=== PATIENT | female | born 1955 | race Hispanic/Latino ===

== ENCOUNTER 2023-09-25 18:11 | Emergency (ER) | payer OTHER ==
[~2023-09-25] VITALS: Ht 149.9 cm; Wt 81.6 kg
[2023-09-25 19:13] LABS: APPEARANCE,URINE CLEAR (CLEAR); BILIRUBIN,URINE NEGATIVE (NEGATIVE); COLOR,URINE COLORLESS (YELLOW); GLUCOSE, URINE (UA) NEGATIVE (NEGATIVE); KETONES,URINE NEGATIVE (NEGATIVE); LEUKOCYTE ESTERASE ,URINE NEGATIVE Leu/uL (NEGATIVE); NITRATE,URINE NEGATIVE (NEGATIVE); OCCULT BLOOD,URINE NEGATIVE (NEGATIVE); PH,URINE 6.5 (5.0-8.0); PROTEIN,URINE NEGATIVE (NEGATIVE); UROBILINOGEN,URINE 0.2 mg/dL (0.2-1.0)
[2023-09-25 19:18] LABS: ADD UA MICROSCOPIC YES
[2023-09-25 19:20] LABS: BACTERIA,URINE RARE /HPF (None Seen); RBC,URINE 0-1 /HPF (0-1); SQUAMOUS EPITHELIAL CELL,UR RARE /HPF (0-2)
[2023-09-25 19:24] LABS: BASOPHILS # (AUTO) 0.03 K/uL (0.00-0.20); BASOPHILS % (AUTO) 0.4 % (0.0-5.0); EOSINOPHILS % (AUTO) 1.5 % (0.0-8.0); IMMATURE GRANULOCYTE ABSOLUTE 0.02 K/uL (0-1); LYMPHOCYTES # (AUTO) 2.4 K/uL (1.0-4.8); LYMPHOCYTES % (AUTO) 36.2 % (21.0-51.0); MEAN CORPUSCULAR HEMOGLOBIN 30.7 pg (27.0-33.0); MEAN CORPUSCULAR HGB CONC 32.8 g/dL (32.0-36.0); MEAN CORPUSCULAR VOLUME 93.5 fL (79-99); MONOCYTES # (AUTO) 0.4 K/uL (0.1-1.0); MONOCYTES % (AUTO) 5.8 % (3.0-13.0); NEUTROPHILS # (AUTO) 3.8 K/uL (1.8-7.7); NEUTROPHILS % (AUTO) 55.8 % (40.0-77.0); PLATELET COUNT (AUTO) 154 K/uL (130-400); RED BLOOD CELL COUNT(AUTO) 4.17 MIL/uL (4.00-5.50); RED CELL DISTRIBUTION WIDTH 13.3 % (11.0-15.5); WHITE BLOOD COUNT (AUTO) 6.7 K/uL (4.8-10.8)
[2023-09-25 19:39] LABS: CREATININE 0.8 mg/dL (0.5-1.0); POTASSIUM 3.7 mmol/L (3.5-5.1)
[2023-09-25 19:49] LABS: ALBUMIN 3.6 g/dL (3.5-5.0); BILIRUBIN,TOTAL 0.5 mg/dL (0.2-1.0); TOTAL PROTEIN, SERUM 7.6 g/dL (6.0-8.3)
[2023-09-25] MEDS: TAMSULOSIN HCL 0.4 MG CAP.ER.24H PO ONE (21:39)
[2023-09-25] MEDS: CEFTRIAXONE 2GM VIAL IVPB ONE (21:40)
[2023-09-25] MEDS: FAMOTIDINE 20MG VIAL IV ONE (21:40)
[2023-09-25] MEDS: KETOROLAC 30MG VIAL (30MG/ML) IVP ONE (21:40)
[2023-09-25] MEDS: 0.9%NACL 1000ML 1,632 ML IV ONE (21:40)
[2023-09-25] MEDS: METOCLOPRAMIDE 10 MG/2 ML VIAL IVP ONE (21:40)
[2023-09-25] MEDS ORDERED: POLY17PO4 PO (22:17)
[2023-09-25] MEDS: LACTULOSE 20 GM/30 ML UDCUP PO ONE (22:37)
[2023-09-25 22:39] VITALS: BP 143/67; PULSE 61; RESP 17; O2SAT 98
== END 2023-09-25 23:05 | disposition home or self-care (01) ==
LOC: EDH 18:11
DX: K59.00 Constipation, unspecified (principal); E11.9 Type 2 diabetes mellitus without complications; Z98.890 Other specified postprocedural states
CPT/HCPCS: 99285; 74176; 96365; 96375; 84484; 80053; 83690; 85025; 81001; 36415; 93005; J3490; J7030; J0696; J1885; J2765

== ENCOUNTER → 2025-04-04 | Outpatient (CLI) | payer OTHER ==
[~2025-04-04] MED LIST: POLY17PO4 PO
[2025-04-04] MEDS: REGADENOSON 0.4 MG/5 ML PF SYG IVP ONE (14:02)
--- NOTE | 2025-04-05 14:49 | HMCSR ---
APPROVED REPORT TEST INDICATIONS Chest Pain The imaging protocol used to acquire images was Rest Tc-99m/stress Tc-99m 1 day Consent: The procedure was explained and understood by the patient. Informerd consent was witnessed Enrico Joyce Jr (N)(ARRT) First, low dose rest was performed then high dose stress. RESTING DATA: The resting ekg shows: NSR Rest SPECT myocardial perfusion imaging was performed in supine position minutes following the intra venous injection of 11 mCi of Tc-99 Sestamibi. Time of rest injection: 1125 Date: 04/04/2025 PHARMACOLOGIC STRESS: Pharmacologic stress test was performed by injecting regadenoson 0.4 mg IV push followed by the intra venous injection of 26 mCi of Tc-99 Sestamibi. Time of stress injection: 1341 Date: 04/04/2025 Heart Rate at time of stress injection: 55 bpm. The images were gated to evaluate regional wall motion and calculate left ventricular ejection fracti on. STRESS DETAILS Reason for Termination: Infusion complete Stress Symptoms: No chest pain or symptoms Max HR Achieved: 98 bpm % of APMHR Achieved: 75 Max Blood Pressure: 154/60 mmHg Stress ECG: NSR Conclusion No ischemia No infarct LV ejection fraction 74% Normal LV wall motion Normal LV size at rest and stress No increased lung uptake
== END | disposition home or self-care (01) ==
LOC: RAH 10:52
PROVIDERS: ATTEND Internal Medicine Cardiovascular Disease
DX: I20.9 Angina pectoris, unspecified (principal); R06.02 Shortness of breath; R07.9 Chest pain, unspecified; R53.83 Other fatigue
CPT/HCPCS: 78452; 93017; J2785; A9500 ×2